=== PATIENT | male | born 1975 | race Caucasian/White ===

== ENCOUNTER 2019-09-02 08:28 | Emergency (ER) | payer OTHER ==
[2019-09-02] MEDS ORDERED: Lidocaine 1% PF 5 ML VIAL ONE (08:38)
== END 2019-09-02 09:10 | disposition home or self-care (01) ==
LOC: BURERS 08:28
DX: S61.221A Laceration with foreign body of left index finger without damage to nail, initial encounter (principal); S61.225A Laceration with foreign body of left ring finger without damage to nail, initial encounter; I10 Essential (primary) hypertension; E78.5 Hyperlipidemia, unspecified; Z79.899 Other long term (current) drug therapy; W25.XXXA Contact with sharp glass, initial encounter
CPT/HCPCS: 99282; J2001

== ENCOUNTER 2019-11-05 09:38 | Emergency (ER) | payer OTHER ==
[2019-11-05] MEDS ORDERED: Fluorescein Opthalmic Strip ONE (09:48)
[2019-11-05] MEDS ORDERED: Bupivacaine 0.5% 10 ML VIAL ONE (09:48)
[2019-11-05] MEDS ORDERED: Tetracaine 0.5% OPHTH SOLN/PF 4 ML BOT ONE (09:49)
[2019-11-05] MEDS ORDERED: Neomycin-Polymyxin-Hc 7.5 ML BOT ONE (10:00)
== END 2019-11-05 10:10 | disposition home or self-care (01) ==
LOC: BURERS 09:38
DX: S05.02XA Injury of conjunctiva and corneal abrasion without foreign body, left eye, initial encounter (principal); E78.5 Hyperlipidemia, unspecified; I10 Essential (primary) hypertension; Z79.899 Other long term (current) drug therapy; W22.8XXA Striking against or struck by other objects, initial encounter
CPT/HCPCS: 99283; J3490